=== PATIENT | female | born 1955 | race Caucasian/White ===

== ENCOUNTER 2016-09-20 15:08 | Emergency (ER) | payer OTHER ==
[~2016-09-20] VITALS: Ht 152.4 cm; Wt 70.4 kg
[2016-09-20] MEDS ORDERED: LEVO50TA5 PO (15:33)
[2016-09-20] MEDS ORDERED: ATOR20TA9 PO (15:33)
[2016-09-20 17:04] VITALS: BP 124/77
== END 2016-09-20 17:06 | disposition home or self-care (01) ==
LOC: ED 16:12
DX: C55 Malignant neoplasm of uterus, part unspecified (principal); E03.9 Hypothyroidism, unspecified; E78.00 Pure hypercholesterolemia, unspecified; Z85.43 Personal history of malignant neoplasm of ovary
CPT/HCPCS: 99284

== ENCOUNTER → 2016-09-20 | Outpatient (CLI) | payer OTHER ==
[~2016-09-20] MED LIST: ATOR20TA9 PO; LEVO50TA5 PO; OMNIPAQUE 350 MG/ML, 100ML BOTTLE ONE
== END | disposition home or self-care (01) ==
LOC: CFH 14:05
PROVIDERS: ATTEND Family Medicine
DX: R05 Cough (principal); R06.02 Shortness of breath; Z85.44 Personal history of malignant neoplasm of other female genital organs
CPT/HCPCS: 71275; 82565; Q9967

== ENCOUNTER → 2016-10-17 | Outpatient (CLI) | payer OTHER ==
[~2016-10-17] MED LIST changes: +FENTANYL PF 100 MCG/2ML ONE; +FLUMAZENIL 0.1 MG/1 ML, 5ML ONE; +MIDAZOLAM 1 MG/ML, 5ML ONE; +NALOXONE 1 MG/ML, 2ML ONE; -OMNIPAQUE 350 MG/ML, 100ML BOTTLE ONE
== END | disposition home or self-care (01) ==
LOC: RAD 10:16
PROVIDERS: ATTEND Specialist
DX: M71.22 Synovial cyst of popliteal space [Baker], left knee (principal); R22.42 Localized swelling, mass and lump, left lower limb

== ENCOUNTER 2016-10-19 08:14 | Day surgery (SDC) | payer OTHER ==
[~2016-10-19] VITALS: Ht 152.4 cm; Wt 69.7 kg
[~2016-10-19 08:14] MED LIST changes: -FENTANYL PF 100 MCG/2ML ONE; -FLUMAZENIL 0.1 MG/1 ML, 5ML ONE; -MIDAZOLAM 1 MG/ML, 5ML ONE; -NALOXONE 1 MG/ML, 2ML ONE
[2016-10-19 09:04] VITALS: BP 141/90
[2016-10-19] MEDS ORDERED: SODIUM CHLORIDE 0.9% 1,000 ML IV SCH (09:06)
== END 2016-10-19 11:30 ==
LOC: OUT 08:14 → EDSTATUS 09:30 → OUT 11:30
PROVIDERS: ATTEND Specialist
DX: C34.91 Malignant neoplasm of unspecified part of right bronchus or lung (principal)
CPT/HCPCS: 32405; 77012; 88305; 99156; J2250; J3010; J7030; 88341; 88342; 99157; G0461; J2310

== ENCOUNTER → 2016-11-16 | Outpatient (CLI) | payer OTHER ==
[~2016-11-16] MED LIST changes: +LIDOCAINE 1%, 20ML ONE
== END | disposition home or self-care (01) ==
LOC: RAD 12:41
PROVIDERS: ATTEND Surgery
DX: R22.42 Localized swelling, mass and lump, left lower limb (principal); C49.22 Malignant neoplasm of connective and soft tissue of left lower limb, including hip; Z85.42 Personal history of malignant neoplasm of other parts of uterus
CPT/HCPCS: 20206; 76942; 88305; J3490

== ENCOUNTER → 2017-04-27 | Outpatient (CLI) | payer OTHER ==
[~2017-04-27] MED LIST changes: +GADOBUTROL 7.5 MMOL/7.5 ML PFS ONE; -LIDOCAINE 1%, 20ML ONE; +OMNIPAQUE 350 MG/ML, 100ML BOTTLE ONE; +ONDA4TAB7 PO; +POTA20TA14 PO
== END | disposition home or self-care (01) ==
LOC: CFH 08:06
PROVIDERS: ATTEND Specialist
DX: K76.89 Other specified diseases of liver (principal); R91.8 Other nonspecific abnormal finding of lung field; M25.872 Other specified joint disorders, left ankle and foot; M25.871 Other specified joint disorders, right ankle and foot; C54.1 Malignant neoplasm of endometrium; C54.2 Malignant neoplasm of myometrium
CPT/HCPCS: 71260; 73720; 74177; A9585; Q9967

== ENCOUNTER → 2017-05-16 | Outpatient (CLI) | payer OTHER ==
[~2017-05-16] MED LIST changes: -GADOBUTROL 7.5 MMOL/7.5 ML PFS ONE; -OMNIPAQUE 350 MG/ML, 100ML BOTTLE ONE
== END ==
LOC: PETCFH 09:44
PROVIDERS: ATTEND Specialist
DX: C79.51 Secondary malignant neoplasm of bone (principal); C54.9 Malignant neoplasm of corpus uteri, unspecified
CPT/HCPCS: 78306; A9503

== ENCOUNTER → 2017-06-26 | Outpatient (CLI) | payer OTHER ==
[~2017-06-26] MED LIST changes: +OMNIPAQUE 350 MG/ML, 100ML BOTTLE ONE
[2017-06-26 09:14] LABS: CREATININE 0.86 mg/dL (0.55-1.02)
== END | disposition home or self-care (01) ==
LOC: RAD 08:34
PROVIDERS: ATTEND Family Medicine
DX: C78.00 Secondary malignant neoplasm of unspecified lung (principal); C76.3 Malignant neoplasm of pelvis; R91.8 Other nonspecific abnormal finding of lung field; R16.0 Hepatomegaly, not elsewhere classified
CPT/HCPCS: 36415; 71260; 74177; 82565; Q9967

== ENCOUNTER → 2017-08-28 | Outpatient (CLI) | payer OTHER ==
[~2017-08-28] MED LIST changes: +GADOBUTROL 7.5 MMOL/7.5 ML PFS ONE
== END | disposition home or self-care (01) ==
LOC: CFH 11:43
PROVIDERS: ATTEND Family Medicine
DX: R91.8 Other nonspecific abnormal finding of lung field (principal); C78.7 Secondary malignant neoplasm of liver and intrahepatic bile duct; C78.00 Secondary malignant neoplasm of unspecified lung; M25.872 Other specified joint disorders, left ankle and foot; C55 Malignant neoplasm of uterus, part unspecified
CPT/HCPCS: 71260; 73720; 74177; A9585; Q9967

== ENCOUNTER → 2018-01-22 | Outpatient (CLI) | payer OTHER ==
[~2018-01-22] MED LIST changes: +ATOR20TA37 PO; -ATOR20TA9 PO; -GADOBUTROL 7.5 MMOL/7.5 ML PFS ONE
== END | disposition home or self-care (01) ==
LOC: CFH 11:47
PROVIDERS: ATTEND Specialist
DX: C49.9 Malignant neoplasm of connective and soft tissue, unspecified (principal); R91.8 Other nonspecific abnormal finding of lung field
CPT/HCPCS: 71260; 74177; Q9967

== ENCOUNTER → 2018-04-10 | Outpatient (CLI) | payer OTHER | END | disposition home or self-care (01) | LOC: CFH 13:56 | PROVIDERS: ATTEND Specialist | DX: R91.8 Other nonspecific abnormal finding of lung field (principal); M51.36 Other intervertebral disc degeneration, lumbar region; C49.9 Malignant neoplasm of connective and soft tissue, unspecified | CPT/HCPCS: 71260; 74177; Q9967 ==

== ENCOUNTER 2018-05-21 07:35 | Day surgery (SDC) | payer OTHER ==
[~2018-05-21] VITALS: Ht 152.4 cm; Wt 68.4 kg
[~2018-05-21 07:35] MED LIST changes: -OMNIPAQUE 350 MG/ML, 100ML BOTTLE ONE
[2018-05-21] MEDS ORDERED: SODIUM CHLORIDE 0.9% 1,000 ML IV SCH (08:07)
[2018-05-21] MEDS ORDERED: CEFAZOLIN PMX 1GM/50ML 50 ML IV ONE (08:30)
[2018-05-21 08:39] VITALS: BP 127/82
[2018-05-21] MEDS ORDERED: FENTANYL PF 100 MCG/2ML ONE (09:37)
[2018-05-21] MEDS ORDERED: MIDAZOLAM 1 MG/ML, 5ML ONE (09:37)
[2018-05-21] MEDS ORDERED: NALOXONE 1 MG/ML, 2ML ONE (09:38)
[2018-05-21] MEDS ORDERED: FLUMAZENIL 0.1 MG/1 ML, 5ML ONE (09:38)
[2018-05-21] MEDS ORDERED: LIDOCAINE 1%, 20ML ONE (09:47)
[2018-05-21] MEDS ORDERED: LIDOCAINE-MPF 1%, 5ML ONE (10:32)
== END 2018-05-21 14:00 | disposition home or self-care (01) ==
LOC: OUT 07:35
PROVIDERS: ATTEND Specialist
DX: Z45.2 Encounter for adjustment and management of vascular access device (principal); C49.9 Malignant neoplasm of connective and soft tissue, unspecified; C79.51 Secondary malignant neoplasm of bone; F17.210 Nicotine dependence, cigarettes, uncomplicated
CPT/HCPCS: 36561; 77001; 99156; 99157; C1788; C1894; J0690; J1642; J2250; J3010; J7030; J2310

== ENCOUNTER 2018-05-28 14:46 | Inpatient (IN) | payer OTHER ==
[~2018-05-28] VITALS: Ht 152.4 cm; Wt 70.1 kg
--- NOTE | 2018-05-28 15:08 | NUR ---
BACK FROM CT, OBTAINING PT HX, PT C/O SEVERE SHOULDER PAIN R/T CANCER
[2018-05-28 15:12] LABS: BASOPHILS # (AUTO) 0.07 x10^3/uL (0-0.1); BASOPHILS % (AUTO) 1 % (0-1); EOSINOPHILS # (AUTO) 0.02 x10^3/uL (0-0.4); EOSINOPHILS % (AUTO) 0 % (1-7); LYMPHOCYTES # (AUTO) 0.87 x10^3/uL (1-3.4); LYMPHOCYTES % (AUTO) 14 % (22-44); MD NO; MEAN CORPUSCULAR HEMOGLOBIN 33.7 pg (27.0-34.8); MEAN CORPUSCULAR HGB CONC 34.3 g/dL (32.4-35.8); MEAN CORPUSCULAR VOLUME 98.3 fL (80-100); MEAN PLATELET VOLUME 8.6 fL (7.4-10.4); MONOCYTES # (AUTO) 0.28 x10^3/uL (0.2-0.8); MONOCYTES % (AUTO) 4 % (2-9); NEUTROPHILS # (AUTO) 5.16 x10^3/uL (1.8-6.8); NEUTROPHILS % (AUTO) 81 % (42-75); PLATELET COUNT 258 x10^3/uL (130-400); RED BLOOD COUNT 4.66 x10^6/uL (3.82-5.3); RED CELL DISTRIBUTION WIDTH 13.6 % (9.6-15.2)
[2018-05-28] MEDS ORDERED: OMNIPAQUE 350 MG/ML, 100ML BOTTLE ONE (15:22)
[2018-05-28 15:23] LABS: INTERNATIONAL NORMALIZED RATIO 0.96 (0.93-1.1); PROTHROMBIN TIME 10.1 Seconds (9.6-11.5)
[2018-05-28] MEDS ORDERED: MORPHINE SULFATE 4 MG/ML, 1ML ONE (15:24)
[2018-05-28] MEDS ORDERED: ONDANSETRON 2MG/ML, 2ML ONE (15:24)
[2018-05-28] MEDS ORDERED: LEVETIRACETAM 500 MG in SODIUM CHLORIDE 0.9% 100 ML IV ONE (15:30)
--- NOTE | 2018-05-28 15:30 | NUR ---
PT TO MRI
[2018-05-28] MEDS: ONDANSETRON 2MG/ML, 2ML IVPush PRN (15:45)
[2018-05-28] MEDS ORDERED: GADOBUTROL 7.5 MMOL/7.5 ML PFS ONE (15:57)
[2018-05-28] MEDS ORDERED: LORazepam 2 MG/ML, 1ML IVPush PRN (16:00)
[2018-05-28] MEDS ORDERED: morphine SULFATE 10 MG/ML, 1ML IVPush PRN (16:00)
[2018-05-28] MEDS ORDERED: DOCUSATE 100 MG CAPSULE PO PRN (16:00)
[2018-05-28] MEDS ORDERED: POLYETHYLENE GLYCOL 17 GM PACKET PO PRN (16:00)
[2018-05-28] MEDS ORDERED: ENALAPRILAT 1.25 MG/ML, 2ML IVPush PRN (16:00)
[2018-05-28] MEDS ORDERED: LABETALOL 5 MG/ML SYRINGE IVPush PRN (16:00)
--- NOTE | 2018-05-28 16:05 | NUR ---
PT BACK FROM MRI, REPORT GIVEN TO CCU, WILL TRANSPORT WITH [facility]ONGINGS
[2018-05-28 17:13] VITALS: BP 134/74
[2018-05-28 17:41] VITALS: BP 141/71
[2018-05-28] MEDS: SODIUM CHLORIDE 0.9% 1,000 ML IV SCH (18:04)
[2018-05-28] MEDS: ACETAMINOPHEN 325 MG TABLET PO PRN (20:11)
[2018-05-28] MEDS: OXYcodone IR 5MG TABLET PO PRN (20:11)
[2018-05-28] MEDS: ONDANSETRON ODT 4 MG PO PRN (20:24)
[2018-05-29 04:00] VITALS: BP 95/49
[2018-05-29] MEDS: SODIUM CHLORIDE 0.9% 1,000 ML IV SCH ×2 (04:24→15:32)
[2018-05-29] MEDS ORDERED: SODIUM CHLORIDE 0.9%, 250ML IVBOLUS ONE (04:30)
[2018-05-29] MEDS: OXYcodone IR 5MG TABLET PO PRN ×3 (04:39→23:26)
[2018-05-29 04:57] LABS: BASOPHILS # (AUTO) 0.03 x10^3/uL (0-0.1); BASOPHILS % (AUTO) 0 % (0-1); EOSINOPHILS # (AUTO) 0.05 x10^3/uL (0-0.4); EOSINOPHILS % (AUTO) 1 % (1-7); LYMPHOCYTES # (AUTO) 1.48 x10^3/uL (1-3.4); LYMPHOCYTES % (AUTO) 21 % (22-44); MD NO; MEAN CORPUSCULAR HEMOGLOBIN 34.1 pg (27.0-34.8); MEAN CORPUSCULAR HGB CONC 34.5 g/dL (32.4-35.8); MEAN PLATELET VOLUME 8.3 fL (7.4-10.4); MONOCYTES # (AUTO) 0.65 x10^3/uL (0.2-0.8); MONOCYTES % (AUTO) 9 % (2-9); NEUTROPHILS # (AUTO) 4.83 x10^3/uL (1.8-6.8); NEUTROPHILS % (AUTO) 69 % (42-75); PLATELET COUNT 240 x10^3/uL (130-400); RED BLOOD COUNT 4.14 x10^6/uL (3.82-5.3); RED CELL DISTRIBUTION WIDTH 13.3 % (9.6-15.2)
[2018-05-29] MEDS: LEVETIRACETAM 500 MG in SODIUM CHLORIDE 0.9% 100 ML IV SCH ×2 (05:52→17:14)
[2018-05-29 06:58] LABS: ALANINE AMINOTRANSFERASE 70 U/L (12-78); ALBUMIN 2.9 g/dL (3.4-5.0); ANION GAP 8 mmol/L (5-15); CALCIUM 7.1 mg/dL (8.5-10.1); CHLORIDE 111 mmol/L (98-107); CREATININE 0.61 mg/dL (0.55-1.02)
[2018-05-29 07:08] LABS: ALKALINE PHOSPHATASE 53 U/L (45-117); BILIRUBIN,TOTAL 0.4 mg/dL (0.2-1.0); TOTAL PROTEIN 5.8 g/dL (6.4-8.2)
[2018-05-29] MEDS ORDERED: POTASSIUM CHLORIDE 20 MEQ TAB.ER.PRT PO ONE (07:30)
[2018-05-29] MEDS: LEVOTHYROXINE 50 MCG TABLET PO SCH (09:20)
[2018-05-29] MEDS: ONDANSETRON 2MG/ML, 2ML IVPush PRN (09:45)
[2018-05-29 12:32] VITALS: BP 100/62
[2018-05-29 20:09] VITALS: BP 124/80
[2018-05-29] MEDS: ONDANSETRON ODT 4 MG PO PRN (23:29)
[2018-05-30 01:21] VITALS: BP 104/60
[2018-05-30] MEDS: SODIUM CHLORIDE 0.9% 1,000 ML IV SCH ×2 (03:37→15:27)
[2018-05-30] MEDS: LEVETIRACETAM 500 MG in SODIUM CHLORIDE 0.9% 100 ML IV SCH (05:18)
[2018-05-30 07:17] LABS: ANION GAP 8 mmol/L (5-15); CHLORIDE 112 mmol/L (98-107); CREATININE 0.56 mg/dL (0.55-1.02)
[2018-05-30 07:33] VITALS: BP 119/68
[2018-05-30] MEDS: LEVOTHYROXINE 50 MCG TABLET PO SCH (08:18)
[2018-05-30] MEDS: ACETAMINOPHEN 325 MG TABLET PO PRN (15:25)
[2018-05-30] MEDS ORDERED: LEVE500T53 PO (16:53)
[2018-05-30] MEDS ORDERED: LEVETIRACETAM 500 MG TABLET PO SCH (21:00)
== END 2018-05-30 18:30 | disposition home or self-care (01) | DRG 66 ==
LOC: ED 15:40 → EDIP 15:41 → ED 15:50 → CCU 16:22 → 4WST 05-29 13:11 → 4EST 05-30 06:06
PROVIDERS: ADMIT Internal Medicine; ATTEND Internal Medicine
DX: I60.9 Nontraumatic subarachnoid hemorrhage, unspecified (principal); E03.9 Hypothyroidism, unspecified; E78.00 Pure hypercholesterolemia, unspecified; E78.5 Hyperlipidemia, unspecified; Z66 Do not resuscitate; Z51.5 Encounter for palliative care; Z82.49 Family history of ischemic heart disease and other diseases of the circulatory system; Z85.42 Personal history of malignant neoplasm of other parts of uterus; Z90.49 Acquired absence of other specified parts of digestive tract; Z85.05 Personal history of malignant neoplasm of liver; Z85.118 Personal history of other malignant neoplasm of bronchus and lung; Z85.830 Personal history of malignant neoplasm of bone; Z85.841 Personal history of malignant neoplasm of brain
CPT/HCPCS: 36415; 70450; 70496; 70498; 70553; 80047; 80048; 80053; 82962; 84443; 85025; 85610; 85730; 87081; 93005; 93306; 96374; 99291; A9585; G0378; J1953; J2405; Q0162; Q9967; J2270; J7030; J7050

== ENCOUNTER 2018-08-02 15:54 | Emergency (ER) | payer OTHER ==
[~2018-08-02] VITALS: Ht 152.4 cm; Wt 62.1 kg
[~2018-08-02 15:54] MED LIST changes: +LEVE500T53 PO
[2018-08-02] MEDS ORDERED: SODIUM CHLORIDE FLUSH 10ML SYR IVF ONE (16:30)
[2018-08-02 16:39] LABS: BASOPHILS # (AUTO) 0.04 x10^3/uL (0-0.1); BASOPHILS % (AUTO) 1 % (0-1); EOSINOPHILS # (AUTO) 0.02 x10^3/uL (0-0.4); EOSINOPHILS % (AUTO) 0 % (1-7); LYMPHOCYTES # (AUTO) 0.59 x10^3/uL (1-3.4); LYMPHOCYTES % (AUTO) 10 % (22-44); MD NO; MEAN CORPUSCULAR HEMOGLOBIN 32.8 pg (27.0-34.8); MEAN CORPUSCULAR HGB CONC 33.6 g/dL (32.4-35.8); MEAN CORPUSCULAR VOLUME 97.5 fL (80-100); MEAN PLATELET VOLUME 8.2 fL (7.4-10.4); MONOCYTES # (AUTO) 0.28 x10^3/uL (0.2-0.8); MONOCYTES % (AUTO) 5 % (2-9); NEUTROPHILS # (AUTO) 5.08 x10^3/uL (1.8-6.8); NEUTROPHILS % (AUTO) 85 % (42-75); PLATELET COUNT 331 x10^3/uL (130-400); RED BLOOD COUNT 4.15 x10^6/uL (3.82-5.3); RED CELL DISTRIBUTION WIDTH 14.8 % (9.6-15.2)
[2018-08-02 16:47] LABS: ALBUMIN 3.3 g/dL (3.4-5.0); ANION GAP 10 mmol/L (5-15); CALCIUM 8.3 mg/dL (8.5-10.1); CHLORIDE 102 mmol/L (98-107)
--- NOTE | 2018-08-02 16:48 | NUR ---
PT PRESENTS WITH LUNG AND EPIGASTRIC PAIN, WORSE WHEN LAYING DOWN - 8/10. COUGHS SO HARD SHE VOMITS. CURRENTLY BEING TREATED FOR CA WITH METS. AT BEDSIDE. CALL LIGHT IN REACH. PT DENIES NEEDS.
--- NOTE | 2018-08-02 16:48 | NUR ---
Note sapna in EDM - 08/02/18 at 1711 by JUSTINE PT PRESENTS WITH LUNG AND EPIGASTRIC PAIN, WORSE WHEN LAYING DOWN - 09/21. COUGHS SO HARD SHE VOMITS. CURRENTLY BEING TREATED FOR CA WITH METS. AT BEDSIDE. CALL LIGHT IN REACH. PT DENIES NEEDS.
[2018-08-02 16:54] LABS: ALANINE AMINOTRANSFERASE 15 U/L (12-78); ALKALINE PHOSPHATASE 63 U/L (45-117); BILIRUBIN,TOTAL 0.8 mg/dL (0.2-1.0); CREATININE 0.64 mg/dL (0.55-1.02); TOTAL PROTEIN 6.4 g/dL (6.4-8.2); TROPONIN I < 0.015 ng/mL (0.000-0.045)
[2018-08-02] MEDS ORDERED: MAALOX/HYOSCYAMINE/LIDOCAINE 45 ML BTL PO ONE (17:00)
[2018-08-02] MEDS ORDERED: MAALOX/HYOSCYAMINE/LIDOCAINE 45 ML BTL ONE (17:10)
--- NOTE | 2018-08-02 17:43 | NUR ---
Pt taken to CT
[2018-08-02] MEDS ORDERED: HYDROmorphone 2 MG/ML, 1ML ONE ×2 (17:52→18:17)
[2018-08-02] MEDS ORDERED: HYDROmorphone 2 MG/ML, 1ML IV ONE (18:00)
--- NOTE | 2018-08-02 18:10 | NUR ---
BROUGHT BACK FROM CT, WAS NOT ABLE TO TOLERATE CT DUE TO SOB WHEN LAYING FLAT. PT MEDICATED WITH DILAUDID FOR PAIN. VSS.
--- NOTE | 2018-08-02 18:24 | NUR ---
ACCOMPANIED PT CT, ADDITIONAL DOSE OF PAIN MEDICATION GIVEN. PT ABLE TO TOLERATE CT. MD IS AWARE PT IS HYPOTENSIVE, WILL GIVE FLUID BOLUS AFTER CT.
[2018-08-02 18:43] VITALS: BP 107/70
--- NOTE | 2018-08-02 18:44 | NUR ---
PT BACK IN ROOM, RESTING. CT RESULTS PENDING.
[2018-08-02] MEDS ORDERED: OMNIPAQUE 350 MG/ML, 100ML BOTTLE ONE (18:48)
--- NOTE | 2018-08-02 18:55 | NUR ---
REPORT GIVEN TO KARINA
--- NOTE | 2018-08-02 18:59 | NUR ---
ASSUMED CARE FOR THIS PT.
--- NOTE | 2018-08-02 19:41 | NUR ---
PT UP FOR RECHECK. ERP TO BEDSIDE.
== END 2018-08-02 20:49 | disposition home or self-care (01) ==
LOC: ED 17:46
DX: R10.12 Left upper quadrant pain (principal); N28.89 Other specified disorders of kidney and ureter; R11.2 Nausea with vomiting, unspecified; E78.00 Pure hypercholesterolemia, unspecified; E03.9 Hypothyroidism, unspecified
CPT/HCPCS: 36415; 71045; 71275; 74177; 80053; 83690; 83880; 84484; 85025; 93005; 96374; 99284; J1170; Q9967

== ENCOUNTER → 2018-08-05 | Outpatient (CLI) | payer OTHER ==
[~2018-08-05] MED LIST changes: +FENTANYL PF 100 MCG/2ML ONE; +FLUMAZENIL 0.1 MG/1 ML, 5ML ONE; +GADOBUTROL 7.5 MMOL/7.5 ML PFS ONE; +MIDAZOLAM 1 MG/ML, 5ML ONE; +NALOXONE 1 MG/ML, 2ML ONE
== END | disposition home or self-care (01) ==
LOC: RAD 08:12
PROVIDERS: ATTEND Radiology Radiation Oncology
DX: C79.31 Secondary malignant neoplasm of brain (principal); H70.91 Unspecified mastoiditis, right ear; R90.89 Other abnormal findings on diagnostic imaging of central nervous system
CPT/HCPCS: 70553; 99156; 99157; A9585; J2250; J3010; J2310

== ENCOUNTER → 2018-08-08 | Outpatient (CLI) | payer OTHER ==
[~2018-08-08] MED LIST changes: -FENTANYL PF 100 MCG/2ML ONE; -FLUMAZENIL 0.1 MG/1 ML, 5ML ONE; -GADOBUTROL 7.5 MMOL/7.5 ML PFS ONE; -MIDAZOLAM 1 MG/ML, 5ML ONE; -NALOXONE 1 MG/ML, 2ML ONE
== END | disposition home or self-care (01) ==
LOC: ROC 09:41
PROVIDERS: ATTEND Radiology Radiation Oncology
DX: C79.31 Secondary malignant neoplasm of brain (principal); Z85.42 Personal history of malignant neoplasm of other parts of uterus
CPT/HCPCS: 99213; G0463

== ENCOUNTER 2018-09-11 09:37 | Outpatient (CLI) | payer OTHER ==
[2018-09-11] MEDS ORDERED: OMNIPAQUE 350 MG/ML, 100ML BOTTLE ONE (14:22)
== END 2018-09-11 23:59 | disposition home or self-care (01) ==
LOC: CFH 09:37
PROVIDERS: ATTEND Specialist
DX: C54.1 Malignant neoplasm of endometrium (principal); J90 Pleural effusion, not elsewhere classified; R91.8 Other nonspecific abnormal finding of lung field; K76.89 Other specified diseases of liver; N28.89 Other specified disorders of kidney and ureter; K82.8 Other specified diseases of gallbladder; M47.816 Spondylosis without myelopathy or radiculopathy, lumbar region; Z90.49 Acquired absence of other specified parts of digestive tract
CPT/HCPCS: 71260; 74177; Q9967

== ENCOUNTER 2018-09-13 14:35 | Outpatient (CLI) | payer OTHER ==
[2018-09-13] MEDS ORDERED: GADOBUTROL 7.5 MMOL/7.5 ML VIAL ONE (15:30)
== END 2018-09-13 23:59 | disposition home or self-care (01) ==
LOC: CFH 14:35
PROVIDERS: ATTEND Radiology Radiation Oncology
DX: C79.31 Secondary malignant neoplasm of brain (principal); C54.1 Malignant neoplasm of endometrium
CPT/HCPCS: 70553; A9585

== ENCOUNTER 2018-09-25 20:07 | Emergency (ER) | payer OTHER ==
[~2018-09-25] VITALS: Ht 152.4 cm; Wt 57.5 kg
[2018-09-25 23:26] VITALS: BP 90/61
== END 2018-09-25 23:26 | disposition home or self-care (01) ==
LOC: ED 23:00
DX: G89.29 Other chronic pain (principal); R10.11 Right upper quadrant pain; R10.12 Left upper quadrant pain; R10.13 Epigastric pain; E03.9 Hypothyroidism, unspecified; E78.00 Pure hypercholesterolemia, unspecified; Z85.42 Personal history of malignant neoplasm of other parts of uterus; Z85.05 Personal history of malignant neoplasm of liver; Z85.118 Personal history of other malignant neoplasm of bronchus and lung; Z85.841 Personal history of malignant neoplasm of brain; Z51.11 Encounter for antineoplastic chemotherapy
CPT/HCPCS: 96374; 96375; 96376; 99283; J1170; J2405